=== PATIENT | female | born 1985 ===

== ENCOUNTER 2017-03-22 06:49 | Day surgery (SDC) | payer OTHER ==
[2017-03-16 11:51] VITALS: BMI 48.1
[2017-03-22] MEDS ORDERED: Midazolam 2 MG/2 ML VIAL ONE (09:12)
[2017-03-22] MEDS ORDERED: Propofol 10 mg/ml Inj (20 ML) ONE (09:12)
[2017-03-22] MEDS ORDERED: Sodium Chloride 0.9% 1,000 ML IV SCH (10:00)
[2017-03-22 10:29] VITALS: RESP 18
[2017-03-22 14:07] VITALS: BP 107/59; PULSE 53; TEMP 97.8; O2SAT 99
== END 2017-03-22 11:43 | disposition home or self-care (01) ==
LOC: ENDO 06:49
PROVIDERS: ATTEND Internal Medicine
DX: K29.50 Unspecified chronic gastritis without bleeding (principal); B96.81 Helicobacter pylori [H. pylori] as the cause of diseases classified elsewhere; K29.80 Duodenitis without bleeding; Z01.818 Encounter for other preprocedural examination; E66.01 Morbid (severe) obesity due to excess calories
CPT/HCPCS: 43239; 84703; 88305; 88342; J2704; J3010; J7040 ×2

== ENCOUNTER 2017-11-16 06:59 | Emergency (ER) | payer OTHER ==
[2017-11-16 07:02] VITALS: BMI 36.2
[2017-11-16 07:10] VITALS: BP 128/74; PULSE 68; RESP 18; TEMP 98.4
[2017-11-16] MEDS ORDERED: Tmp-Smz 800 mg-160 mg DS Tab PO STA (07:24)
--- NOTE | 2017-11-16 07:24 | ED PDOC ---
Arrival/HPI - General Chief Complaint: Abnormal Skin Integrity Time Seen by Provider: 11/16/17 07:23 Historian: Patient - History of Present Illness Narrative History of Present Illness (Text): 11/16/17 07:24 32 year old female, with no significant past medical history, presents to the emergency department complaining of right inner gluteal lesion concerned for boil/abscess that began yesterday. Patient states due to the swelling and discomfort caused when patient was sitting, she decided to be evaluated. Patient denies any fever/chills/sweats, chest pain/shortness of breath/ palpitations, abdominal pain/nausea/vomiting, urinary/bowel changes/complaints, or any other complaints. PMD: Dr. Peterson Time/Duration: 24 hours Symptom Onset: Gradual Symptom Course: Unchanged Activities at Onset: Light Context: Sitting Past Medical History - Provider Review Nursing Documentation Reviewed: Yes - Travel History Have you recently traveled outside [place] w/in the past 3 mons?: No - Past History Past History: No Previous - Infectious Disease Hx of Infectious Diseases: None - Tetanus Immunization Tetanus Immunization: Unknown - Reproductive Menopause: No Currently : No - Past Medical History Past Medical History: No Previous - Cardiac Hx Pacemaker: No - Neurological Hx Paralysis: No - Hematological/Oncological Hx Blood Transfusions: No - Musculoskeletal/Rheumatological Hx Musculoskeletal Disorders: No - Psychiatric Hx Emotional Abuse: No Hx Physical Abuse: No Hx Substance Use: No - Surgical History Hx Section: Yes Hx Tubal Ligation: Yes - Anesthesia Hx Anesthesia Reactions: No - Suicidal Assessment Feels Threatened In Home Enviroment: No Family/Social History - Physician Review Nursing Documentation Reviewed: Yes Family/Social History: No Known Family HX Smoking Status: Never Smoked Hx Alcohol Use: Yes (SOCIAL) Hx Substance Use: No Hx Substance Use Treatment: No Allergies/Home Meds Allergies/Adverse Reactions: Allergies No Known Allergies Allergy (Verified 05/21/16 08:56) Home Medications: Home Meds Medication Instructions Recorded Confirmed Celecoxib [Celebrex] 100 mg PO PRN PRN 03/16/17 03/16/17 Pantoprazole [Protonix] 40 mg PO DAILY 03/22/17 03/22/17 Review of Systems - Physician Review All systems were reviewed & negative as marked: Yes - Review of Systems Constitutional: absent: Fatigue, Fevers, Night Sweats, Other (Chills) Eyes: Normal ENT: Normal Respiratory: absent: SOB Cardiovascular: absent: Chest Pain, Palpitations Gastrointestinal: absent: Abdominal Pain, Stool Changes, Diarrhea, Nausea, Vomiting Genitourinary Female: absent: Urine Output Changes Musculoskeletal: Normal Skin: Normal Neurological: Normal Endocrine: Normal Hemo/Lymphatic: Normal Physical Exam Vital Signs Reviewed: Yes Vital Signs Temp Pulse Resp BP Pulse Ox 11/16/17 07:49 98.4 F 68 18 128/74 98 11/16/17 07:02 98.4 F 68 18 128/74 99 Temperature: Afebrile Blood Pressure: Normal Pulse: Regular Respiratory Rate: Normal Appearance: Positive for: Well-Appearing, Non-Toxic, Uncomfortable, Other ( sitting on the exam bed, alert/awake, GCS = 15, oriented x 3; uncomfortable, NAD ) Pain Distress: None Mental Status: Positive for: Alert and Oriented X 3 - Systems Exam Head: Present: Atraumatic, Normocephalic Pupils: Present: PERRL Extroacular Muscles: Present: EOMI Conjunctiva: Present: Normal Mouth: Present: Moist Mucous Membranes Neck: Present: Normal Range of Motion, Trachea Midline. No: Meningeal Signs, MIDLINE TENDERNESS, Paraspinal Tenderness Respiratory/Chest: Present: Clear to Auscultation, Good Air Exchange, Other ( CTA b/l, no w/r/r). No: Respiratory Distress, Accessory Muscle Use Cardiovascular: Present: Regular Rate and Rhythm, Normal S1, S2. No: Murmurs Abdomen: Present: Normal Bowel Sounds, Other (well nourished female, no focal tenderness, no julio's sign/mcburney's point tenderness). No: Tenderness, Distention, Peritoneal Signs Rectal: Present: Normal Rectal Tone, Other (+ right inner gluteal indurated lesion/non-fluctuant, + tender on exam, 3.5cmx2.5cm near oval shaped; no surrounding skin erythema is note; no ulceration/pustules/open sores noted; no expressible discharge is noted). No: Rectal Tenderness, Gross Blood, Hemorrhoids Back: Present: Normal Inspection. No: CVA Tenderness, Midline Tenderness, Paraspinal Tenderness Upper Extremity: Present: Normal Inspection, Normal ROM, NORMAL PULSES, Neurovascularly Intact. No: Cyanosis, Edema Lower Extremity: Present: Normal Inspection, NORMAL PULSES, Neurovascularly Intact. No: Edema Neurological: Present: GCS=15, CN II-XII Intact, Speech Normal Skin: Present: Warm, Dry, Normal Color. No: Rashes Psychiatric: Present: Alert, Oriented x 3, Normal Insight, Normal Concentration Medical Decision Making ED Course and Treatment: 11/16/17 07:24 Impression: gluteal abscess 32 year old female presents complaining of swelling and discomfort from an abscess to the right inner gluteal region that began yesterday. I have considered all differential diagnoses regarding patients chief medical complaints/clinical findings which include but are not limited to: Abscess with local cellulites. Plan: -- Bactrim DS Tab -- Reassess and disposition Progress Notes: 11/16/17 07:33 On re-evaluation, patient is in no acute distress. I have discussed the results and plan with the patient, who expresses understanding. Patient in agreement with plan to be discharged home. Patient is stable for discharge. Patient was instructed to follow up with physician or return if symptoms worsen or new concerning symptoms arise. Re-evaluation Time: 07:35 Reassessment Condition: Unchanged - Medication Orders Current Medication Orders: Discontinued Medications Trimethoprim/Sulfamethoxazole (Bactrim Ds Tab) 1 tab PO STAT STA PRN Reason: Protocol Stop: 11/16/17 07:25 Last Admin: 11/16/17 07:34 Dose: 1 tab - Scribe Statement The provider has reviewed the documentation as recorded by the Carol Bennett Provider Scribe Attestation: All medical record entries made by the Scribe were at my direction and personally dictated by me. I have reviewed the chart and agree that the record accurately reflects my personal performance of the history, physical exam, medical decision making, and the department course for this patient. I have also personally directed, reviewed, and agree with the discharge instructions and disposition. Disposition/Present on Arrival - Present on Arrival Any Indicators Present on Arrival: No History of DVT/PE: No History of Uncontrolled Diabetes: No Urinary Catheter: No History of Decub. Ulcer: No History Surgical Site Infection Following: None - Disposition Have Diagnosis and Disposition been Completed?: Yes Diagnosis: Abscess of gluteal region Disposition: HOME/ ROUTINE Disposition Time: 07:35 Patient Plan: Discharge Condition: STABLE Discharge Instructions (ExitCare): Rebeka (DC) Print Language: ECUADOREAN Additional Instructions: Make sure to see your doctor in 1-2 days DRINK PLENTY OF FLUIDS WARM compress 20min/hr over the next few days take your medications as prescribed RETURN TO ED IF worse pain, worse swelling to the boil, cant breath, persistent vomiting, high fever >101-102 for hours, altered behavior, slurr speech, facial changes, focal weakness (arm/leg or both), unable to urinate, heavy/persistent bleeding, passing out, chest pain, or other medical emergencies Prescriptions: Ibuprofen [Motrin] 600 mg PO QID PRN #30 tab PRN Reason: Pain, Mild (1-3) Sulfamethoxazole/Trimethoprim [Bactrim Ds Tablet] 1 each PO BID #13 tablet Referrals: Brian Peterson MD [Primary Care Provider] - Follow up with primary Karan Vazquez MD [Staff Provider] - Follow up with primary Thong Caballero MD [Staff Provider] - Follow up with primary Forms: [facility] [facility] (Armenian)
[2017-11-16 07:51] VITALS: O2SAT 98
== END 2017-11-16 07:51 | disposition home or self-care (01) ==
LOC: ED 06:59
DX: L02.31 Cutaneous abscess of buttock (principal)